=== PATIENT | female | born 2000 | race Two or more races ===

== ENCOUNTER 2020-09-26 14:40 | Emergency (ER) | payer MEDICAID ==
[~2020-09-26] VITALS: Ht 160 cm; Wt 81.8 kg
--- NOTE | 2020-09-26 15:02 | NUR ---
BIB EMS FOR WITNESSED SZ WHILE PT WAS AT WORK AT 1340. HX SZ X 2 FIRST SZ WAS MAR 2020. HAD A SECOND SZ LAST WEEK. PT IS CURRENTLY NOT ON MEDS. THINKS SHE HAS AN APPT W/ NEUROLOGIST OCT 24 AT [facility]. DID NOT BITE TONGUE. NO LOSS OF CONTINENCE. VS ORTHOPEDICS NURSE BS 83, HR 80, BP 120/83, 100% RA. PT RESTING ON GURNEY. NADN. MONITORS APPLIED. VSS. WARM BLANKET PROVIDED. CALL LIGHT IN REACH.
--- NOTE | 2020-09-26 15:54 | NUR ---
PT RESTING ON CAITLIN. GUILLERMINA. ERP AT BEDSIDE FOR EVAL.
[2020-09-26 16:57] LABS: BASOPHILS % (AUTO) 0 % (0-1); EOSINOPHILS % (AUTO) 1 % (1-7); LYMPHOCYTES % (AUTO) 22 % (22-44); MEAN CORPUSCULAR HEMOGLOBIN 30.8 pg (27.0-34.8); MEAN CORPUSCULAR HGB CONC 33.6 g/dL (32.4-35.8); MEAN PLATELET VOLUME 9.6 fL (7.4-10.4); MONOCYTES % (AUTO) 6 % (2-9); NEUTROPHILS % (AUTO) 71 % (42-75); PLATELET COUNT 292 x10^3/uL (130-400); RED CELL DISTRIBUTION WIDTH 13.3 % (9.6-15.2)
[2020-09-26 17:09] LABS: ALBUMIN 3.8 g/dL (3.4-5.0); ANION GAP 7 mmol/L (5-15); CALCIUM 8.8 mg/dL (8.5-10.1); CHLORIDE 105 mmol/L (98-107)
--- NOTE | 2020-09-26 17:14 | NUR ---
PER ERP DR. SAAVEDRA NO NEED FOR UA.
--- NOTE | 2020-09-26 17:19 | NUR ---
PT RESTING ON GURNEY. NADN. [place].
--- NOTE | 2020-09-26 18:03 | NUR ---
PT RESTING ON GURNEY. NADN. [place].
[2020-09-26 18:07] VITALS: BP 110/61
== END 2020-09-26 18:18 | disposition home or self-care (01) ==
LOC: ED 18:00
DX: G40.309 Generalized idiopathic epilepsy and epileptic syndromes, not intractable, without status epilepticus (principal)
CPT/HCPCS: 36415; 80048; 82040; 84703; 85025; 99283

== ENCOUNTER 2020-11-14 14:34 | Emergency (ER) | payer MEDICAID ==
[~2020-11-14] VITALS: Ht 160 cm; Wt 77.5 kg
[2020-11-14 15:27] LABS: BASOPHILS % (AUTO) 1 % (0-1); EOSINOPHILS % (AUTO) 1 % (1-7); LYMPHOCYTES % (AUTO) 28 % (22-44); MEAN CORPUSCULAR HEMOGLOBIN 30.7 pg (27.0-34.8); MEAN PLATELET VOLUME 9.1 fL (7.4-10.4); MONOCYTES % (AUTO) 7 % (2-9); NEUTROPHILS % (AUTO) 64 % (42-75); PLATELET COUNT 306 x10^3/uL (130-400); RED BLOOD COUNT 4.55 x10^6/uL (3.82-5.3); RED CELL DISTRIBUTION WIDTH 13.9 % (9.6-15.2)
[2020-11-14 15:39] LABS: ALBUMIN 3.4 g/dL (3.4-5.0); ANION GAP 5 mmol/L (5-15); CALCIUM 8.7 mg/dL (8.5-10.1); CHLORIDE 109 mmol/L (98-107)
[2020-11-14 15:45] LABS: ALANINE AMINOTRANSFERASE 21 U/L (12-78); ALKALINE PHOSPHATASE 65 U/L (45-117); BILIRUBIN,TOTAL 0.3 mg/dL (0.2-1.0); CREATININE 0.71 mg/dL (0.55-1.02); TOTAL PROTEIN 7.5 g/dL (6.4-8.2)
--- NOTE | 2020-11-14 16:56 | NUR ---
[email or web address]
--- NOTE | 2020-11-14 18:54 | NUR ---
BACK FROM BREAK, ASSUMED CARE OF PT AT THIS TIME. PT UP FOR DC.
[2020-11-14 18:56] VITALS: BP 120/64
== END 2020-11-14 18:58 | disposition home or self-care (01) ==
LOC: ED 18:56
DX: N92.4 Excessive bleeding in the premenopausal period (principal)
CPT/HCPCS: 36415; 76830; 80053; 84703; 85025; 99284